=== PATIENT | female | born 1990 | race African-American/Black ===

== ENCOUNTER 2020-04-19 05:45 | Inpatient (IN) ==
[2020-04-19] MEDS ORDERED: LACTATED RINGERS 1,000 ML IV PRN (05:51)
[2020-04-19] MEDS ORDERED: CITRIC ACID/SODIUM CITRATE 30 ML UDCUP PO ONE ×2 (05:51)
[2020-04-19] MEDS ORDERED: FAMOTIDINE 20 MG/2 ML VIAL IV ONE (05:51)
[2020-04-19] MEDS ORDERED: ceFAZolin 2,000 MG in PREMIX 1 EACH IV ONE (05:51)
[2020-04-19] MEDS ORDERED: ONDANSETRON 4 MG/2 ML VIAL IV ONE (05:51)
[2020-04-19] MEDS ORDERED: LACTATED RINGERS 1,000 ML IV ONE (05:52)
[2020-04-19] MEDS ORDERED: LACTATED RINGERS 1,000 ML IV SCH (06:00)
[2020-04-19 06:16] LABS: Basophils % 0.2 % (0.0-0.8); Eosinophils # 0.1 10*3/uL (0.0-0.87); Eosinophils % 0.4 % (0.00-10.9); Hematocrit 36.8 VOL% (35.7-47.0); Hemoglobin 11.5 GM/DL (12.0-16.0); Immature Granulocytes Absolute 0.11 #; Lymphocytes # 3.1 10*3/uL (1.4-4.0); Lymphocytes % 27.2 % (21.3-54.2); Mean Corpuscular HGB Conc 31.3 GM/DL (32-36); Mean Corpuscular Volume 85.6 FL (87-102); Mean Platelet Volume 10.2 FL (9.6-12.0); Neutrophils % 64.2 % (38.7-73.9); Platelet Count 199 T/CUMM (130-400); Red Cell Distribution Width 14.6 % (9.3-17.3); White Blood Count 11.2 T/CUMM (4-12)
[2020-04-19] MEDS ORDERED: DEXAMETHASONE 10 MG/1 ML VIAL ONE (06:41)
[2020-04-19] MEDS ORDERED: ROPIVACAINE 0.5% 30 ML VIAL ONE (06:41)
[2020-04-19] MEDS ORDERED: OXYTOCIN/LR 20 UNIT/1,000 ML BAG IV ONE ×2 (07:08→08:40)
[2020-04-19] MEDS ORDERED: TRANEXAMIC ACID 1,000 MG/10 ML VIAL ONE (07:08)
[2020-04-19] MEDS ORDERED: miSOPROStoL 200 MCG TABLET ONE (07:08)
[2020-04-19] MEDS ORDERED: CARBOPROST TROMETHAMINE 250 MCG/ML AMP IM ONE (07:09)
[2020-04-19] MEDS ORDERED: METHYLERGONOVINE 0.2 MG/1 ML AMP ONE (07:09)
[2020-04-19 08:26] LABS: Cord Arterial Blood HCO3 15.9 MMOL/L
[2020-04-19 08:29] LABS: Cord Venous Blood HCO3 20.8 MMOL/L; Cord Venous Blood PCO2 53.8 MMHG; Cord Venous Blood PO2 28.1 MMHG
[2020-04-19] MEDS ORDERED: ONDANSETRON 4 MG/2 ML VIAL IV PRN (08:40)
[2020-04-19] MEDS ORDERED: MEASLES/MUMPS/RUBELLA VACCINE 0.5 ML VIAL SUBCUT ONE (08:40)
[2020-04-19] MEDS ORDERED: LANOLIN 50% CREAM 0.3 OZ TUBE TOP PRN (08:40)
[2020-04-19] MEDS ORDERED: WITCH HAZEL PADS 100/JAR TOP PRN (08:40)
[2020-04-19] MEDS ORDERED: RHO(D) IMMUNE GLOBULIN 300 MCG SYRINGE IM ONE (08:40)
[2020-04-19] MEDS ORDERED: ACETAMINOPHEN 325 MG TABLET PO PRN (08:40)
[2020-04-19] MEDS ORDERED: HYDROCORTISONE 2.5% RECTAL CREAM 30 GM TUBE TOP PRN (08:40)
[2020-04-19] MEDS ORDERED: oxyCODONE/ACETAMINOPHEN 5-325 MG TABLET PO PRN (08:40)
[2020-04-19] MEDS ORDERED: BENZOCAINE 20%/MENTHOL 0.5% SPRAY 56 GM CAN TOP PRN (08:40)
[2020-04-19] MEDS ORDERED: DIPH/TET/ACEL PERT BOOSTER VACCINE 0.5 ML VIAL IM ONE (08:40)
[2020-04-19] MEDS ORDERED: BISACODYL 10 MG SUPP RECTAL PRN (08:40)
[2020-04-19] MEDS ORDERED: PHENYLEPHRINE 1 MG/10 ML SYRINGE IV ONE (09:05)
[2020-04-19] MEDS ORDERED: fentaNYL 100 MCG/2 ML VIAL ONE (09:05)
[2020-04-19] MEDS ORDERED: MIDAZOLAM 2 MG/2 ML VIAL ONE (09:06)
[2020-04-19] MEDS ORDERED: MORPHINE 10 MG/10 ML VIAL ONE (09:06)
[2020-04-19] MEDS ORDERED: BUPIVACAINE SPINAL 0.75% 2 ML AMP SPINAL ONE (09:06)
[2020-04-19 09:24] LABS: Apearance,Urine Slightly Hazy (Clear); Bacteria,Urine Occasional /HPF (Few); Bilirubin,Urine Negative (Negative); Blood, Urine Moderate mg/dL (Negative); Glucose,Urine (UA) Negative (Negative); Ketones,Urine 5 mg/dL (Negative); Mucus,Urine Occasional /LPF (Occasional); Nitrite,Urine Negative (Negative); Protein,Urine 30 MG/DL; RBC,Urine 179 /HPF (0-4); Squamous Epithelial Cell,Urine Occasional /HPF (0-10); Urine Color Yellow (Yellow); Urine Specific Gravity 1.033 (1.001-1.035); WBC,Urine 6 /HPF (0-6)
[2020-04-19] MEDS: oxyCODONE/ACETAMINOPHEN 5-325 MG TABLET PO PRN ×2 (12:49→20:47)
[2020-04-19] MEDS: ceFAZolin 1,000 MG in SYRINGE 1 EACH IV SCH (16:55)
[2020-04-19] MEDS: DOCUSATE SODIUM 100 MG CAPSULE PO SCH (20:47)
[2020-04-19] MEDS ORDERED: diphenhydrAMINE CAP 25 MG CAPSULE PO PRN (21:57)
[2020-04-20] MEDS: ceFAZolin 1,000 MG in SYRINGE 1 EACH IV SCH (00:10)
[2020-04-20] MEDS ORDERED: HydrOXYzine PAMOATE 25 MG CAPSULE PO PRN (00:39)
[2020-04-20] MEDS: oxyCODONE/ACETAMINOPHEN 5-325 MG TABLET PO PRN ×2 (03:39→22:16)
[2020-04-20] MEDS: IBUPROFEN 800 MG TABLET PO PRN ×2 (03:40→17:25)
[2020-04-20 06:00] LABS: Basophils % 0.2 % (0.0-0.8); Eosinophils % 0.1 % (0.00-10.9); Hematocrit 32.5 VOL% (35.7-47.0); Hemoglobin 10.2 GM/DL (12.0-16.0); Immature Granulocytes % 0.9 %; Immature Granulocytes Absolute 0.17 #; Lymphocytes # 3.3 10*3/uL (1.4-4.0); Lymphocytes % 17.9 % (21.3-54.2); Mean Corpuscular HGB Conc 31.4 GM/DL (32-36); Mean Corpuscular Volume 86.4 FL (87-102); Mean Platelet Volume 9.9 FL (9.6-12.0); Monocytes % 8.2 % (1.7-12.7); Neutrophils % 72.7 % (38.7-73.9); Platelet Count 207 T/CUMM (130-400); Red Blood Count 3.76 MC/CUMM (3.8-5.5); Red Cell Distribution Width 14.6 % (9.3-17.3); White Blood Count 18.4 T/CUMM (4-12)
[2020-04-20] MEDS: DOCUSATE SODIUM 100 MG CAPSULE PO SCH ×2 (08:37→21:17)
[2020-04-20] MEDS: SIMETHICONE CHEW 80 MG TABLET PO PRN ×2 (11:29→22:16)
[2020-04-20] MEDS ORDERED: MAGNESIUM HYDROXIDE SUSP 30 ML UDCUP PO PRN (17:29)
[2020-04-21] MEDS: IBUPROFEN 800 MG TABLET PO PRN (04:19)
[2020-04-21] MEDS: oxyCODONE/ACETAMINOPHEN 5-325 MG TABLET PO PRN (04:20)
[2020-04-21] MEDS: DOCUSATE SODIUM 100 MG CAPSULE PO SCH (08:15)
[2020-04-21 15:46] VITALS: BP 115/79
== END 2020-04-21 10:05 | disposition home or self-care (01) | DRG 788 ==
LOC: N.LD 05:45 → N.OB 11:30
PROVIDERS: ADMIT Specialist; ATTEND Specialist
PROC: LDCSECT (ICD-10-PCS; 2020-04-19 07:30)